=== PATIENT | male | born 1930 | race Caucasian/White ===

== ENCOUNTER 2016-12-10 21:26 | Inpatient (IN) | payer MEDICARE, BC ==
--- NOTE | ~2016-12-10 | DS ---
Discharge Summary [facility] [address] [place]. [address] NAME: LUKE MUELLER : 34 STATUS : DIS IN PAT#: [id number] AGE: 86 ADM/REG DATE : 12/11/16 MR#: [id number] REPORT SERV DATE: 12/13/16 DICTATED BY: JANETTE JOHNSON DATE: 12/12/16 REPORT STATUS : Draft TRANSCRIBED BY: MODL DATE: 12/12/16 ADMISSION DATE: 12/10/2016 DISCHARGE DATE: 12/12/2016 PRINCIPAL DIAGNOSIS: Acute exacerbation of chronic obstructive pulmonary disease with acute on chronic hypoxemic respiratory failure. SECONDARY DIAGNOSES: 1. Type 2 diabetes. 2. Hypertension. 3. Mild acute kidney injury. 4. Elevated left hemidiaphragm. HISTORY OF PRESENT ILLNESS: Please see Dr. Martinez's dictation on 12/10. HOSPITAL COURSE: Admitted with acute exacerbation of COPD with hypoxemia. The patient received bronchodilator, steroids, mucolytic therapy with significant resolution in symptoms. He was still found to have hypoxemia walking and home oxygen was set up on 12/12. With good expectoration, he was able to be released actually on 12/12 with a tapering dose of steroids, nebulized albuterol, Symbicort, Spiriva, Daliresp, potassium, Starlix, Hyzaar, Zyrtec, aspirin. He was given acetylcysteine 600 b.i.d., doxycycline 100 b.i.d., and instructed on the use of home remedies such as Vicks Vapor Rub, humidifiers, codeine cough syrup was also provided to assist with mucolysis. In addition, the patient had expressed anxiety would worsen his symptoms. Ativan was given p.r.n. to prevent hyperventilation which may worsen his symptoms. Follow up with Dr. Caren Etienne in one to two weeks regarding ongoing care. Greater than 30 minutes spent with the patient on discharge planning on discharge day. BHARTI/BRIGIDA Janette Johnson M.D. / [id number] CC: Harvinder Osullivan M.D.
--- NOTE | ~2016-12-10 | HP ---
History And Physical [address] [place]. [address] NAME: LUKE MUELLER : 34 STATUS : ADM Henrik PAT#: [id number] AGE: 86 ADM/REG DATE : 12/10/16 MR#: [id number] REPORT SERV DATE: 12/11/16 DICTATED BY: LONDON HIDALGO DATE: 12/10/16 REPORT STATUS : Draft TRANSCRIBED BY: MODL DATE: 12/10/16 DATE OF ADMISSION: 12/10/2016 CHIEF COMPLAINT: Shortness of breath. HISTORY OF PRESENT ILLNESS: This is an 86-year-old gentleman with history of COPD, hypertension, diabetes, and anxiety presenting with a shortness of breath. The patient reports that he developed shortness of breath since Monday along with cough, productive of some sputum. The patient follows with Dr. Iqbal, and he was actually seen at Dr. Iqbal's office on Monday. At the office, the patient provided sputum for culture and he was discharged home from the office with amoxicillin and some steroids. The patient was actually feeling better with it until yesterday when his breathing got acutely worse. The patient went to an urgent care, where he was apparently found to have oxygen saturations in the 60s and he was emergently referred to the ER for further evaluation and care. In the ER, the patient was found to be slightly tachycardic with heart rate 109, but rest of the vitals were stable. The patient was actually able to maintain adequate oxygen saturations on 2 L of oxygen per nasal cannula alone. Initial lab evaluation was all fairly benign. Chest x-ray revealed a potential left sided infiltrates. Internal Medicine consultation was requested for admission of the patient for further evaluation and care. REVIEW OF SYSTEMS: The patient denies any fevers or chills. Also, 14-point review of systems reviewed and negative other than mentioned above. MEDICATIONS: 1. Proventil two puffs inhaled five times daily p.r.n. 2. Albuterol 1 nebulizer inhaled daily. 3. Amoxicillin 875 mg p.o. q.12 hours x5 days. 4. Aspirin 81 mg p.o. every 48 hours. 5. Symbicort two puffs inhaled twice daily. 6. Zyrtec 10 mg p.o. daily. 7. Flonase one spray nasally daily. 8. Lantus 16 units subcu at bedtime. 9. Hyzaar 08/02 1 tab p.o. daily. 10.Starlix 120 mg p.o. three times daily. 11.Potassium gluconate 550 mg p.o. daily. 12.Prednisone 40 mg p.o. daily x5 days. 13.Daliresp 500 mcg p.o. daily. 14.Spiriva one capsule inhaled daily. ALLERGIES: NKDA. PAST MEDICAL HISTORY: 1. COPD for which, the patient follows with Dr. Iqbal. The patient is not on any home oxygen. History And Physical [address] [address] NAME: LUKE MUELLER : 34 STATUS : ADM Henrik PAT#: [id number] AGE: 86 ADM/REG DATE : 12/10/16 MR#: [id number] REPORT SERV DATE: 12/11/16 DICTATED BY: LONDON HIDALGO DATE: 12/10/16 REPORT STATUS : Draft TRANSCRIBED BY: BRIGIDA DATE: 12/10/16 2. Insulin-dependent diabetes type 2. 3. Hypertension. 4. Anxiety. 5. Peripheral artery disease with stents in both of his kidneys and aorta. 6. TIAs. PAST SURGICAL HISTORY: 1. Miscellaneous orthopaedic surgeries. 2. Collapsed lung a couple years ago for which he had some kind of surgery. FAMILY HISTORY: Negative. SOCIAL HISTORY: The patient does not smoke, drink alcohol, or use any illicit drugs. The patient lives a fairly active life and he lives at home with his . The patient's is at bedside here in the ER. PHYSICAL EXAMINATION: VITAL SIGNS: Temperature 98.6, blood pressure 160/87, pulse 109, respiratory rate is 20, and saturating 96% on 2 L of oxygen. CONSTITUTIONAL: The patient is alert and oriented x3. No focal neurologic deficits. GENERAL: The patient is awake, does not appear to be in acute distress, and he is cooperative.. NECK: No JVD. No lymphadenopathy. Normal thyroid. CHEST: No midline sternotomy scar and no tenderness to palpation. LUNGS: Actually fairly clear to auscultation bilaterally with minimal rhonchi on the left lung arceo. Otherwise, normal respiratory effort on 2 L of oxygen per nasal cannula. CARDIOVASCULAR: Slightly tachycardic, but otherwise no murmurs, rubs, or gallops, and PMI is nondisplaced. ABDOMEN: Soft, nontender, with active bowel sounds and no organomegaly. EXTREMITIES: No edema. Normal distal pulses. No calf tenderness. SKIN: Clean, dry, warm, and intact. LABORATORY DATA: Sodium is 140, potassium 3.9, chloride 102, BUN 39, creatinine 1.78, glucose 397, calcium 9.2, magnesium 1.7. White blood cell count is 10.4, hemoglobin 14.4, platelets 248. INR is 1.0, troponin is less than 0.02. BNP was 58.4. Chest x-ray showed a potential left sided pneumonia. ABG was within normal limits on 2 L of oxygen per nasal cannula. ASSESSMENT: This is an 86-year-old gentleman with history of COPD presenting with community- acquired pneumonia and acute hypoxic respiratory failure. 1. Community-acquired pneumonia with Acinetobacter baumannii and haemolyticus. 2. Acute hypoxic respiratory failure secondary to above. 3. COPD, not dependent on home oxygen at baseline. 4. Uncontrolled diabetes type 2. 5. Stable chronic kidney disease. 6. Hypertension. 7. Anxiety. History And Physical [address] [address] NAME: LUKE MUELLER : 34 STATUS : ADM Henrik PAT#: [id number] AGE: 86 ADM/REG DATE : 12/10/16 MR#: [id number] REPORT SERV DATE: 12/11/16 DICTATED BY: LONDON HIDALGO DATE: 12/10/16 REPORT STATUS : Draft TRANSCRIBED BY: MODZakia DATE: 12/10/16 8. Peripheral artery disease. PLAN: My plan is to admit the patient for observation overnight. The patient will be monitored under telemetry monitoring. The patient will be treated with oxygen support and bronchodilator therapy. Based on sensitivities, I will start the patient on IV Levaquin. The patient will also be continued on p.o. steroids. I will still complete infectious workup including cultures, procalcitonin level, and following up of labs. For diabetes, the patient will be given additional sliding-scale NovoLog and I will check his hemoglobin A1c. Otherwise, for the rest of stable past medical conditions including chronic kidney disease, hypertension, anxiety peripheral artery disease et al, I will continue home medications. Standard DVT prophylaxis. The patient is full code at this time. YSC/MODL London Hidalgo MD / [id number] CC: Harvinder Osullivan M.D. Carlos Baleeiro, M.D.
[2016-12-10 18:06] LABS: BASOPHILS 0 %; EOSINOPHILS 0 %; HEMATOCRIT 43.6 % (40.0-51.0); HEMOGLOBIN 14.4 g/dL (13.6-17.8); IMMATURE GRANULOCYTES 0.2 %; IMMATURE GRANULOCYTES ABSOLUTE 0.02 10/3/uL (0.0-0.11); LYMPHOCYTES ABSOLUTE 0.42 10/3/uL (0.67-4.30); MEAN CORPUSCULAR HEMOGLOB 30.8 pg (26.0-34.0); MEAN CORPUSCULAR VOLUME 93.4 fL (80-100); MEAN PLATELET VOLUME 9.5 fL (9.2-13.0); MONOCYTES 1.2 %; MONOCYTES ABSOLUTE 0.13 10/3/uL (0.21-1.20); NEUTROPHILS 94.6 %; NEUTROPHILS ABSOLUTE 9.87 10/3/uL (2.02-8.40); PLATELET COUNT 248 10/3/uL (150-400); RBC DISTRIBUTION WIDTH 13.8 % (12.0-16.0); RED CELL COUNT 4.67 10/6/uL (4.7-6.1); WHITE BLOOD CELLS 10.4 10/3/uL (4.5-10.5)
[2016-12-10 18:07] LABS: MANUAL DIFF NO %
[2016-12-10 18:13] LABS: PROTIME (NOT ORD) 12.9 SEC (12.0-14.5)
[2016-12-10 18:14] LABS: PARTIAL THROMBO TIME 28.2 SEC (22.5-37.2)
[2016-12-10 18:25] LABS: BUN (BLOOD UREA NITROGEN) 39 MG/DL (6-23); CALCIUM, SERUM 9.2 MG/DL (8.5-10.4); CHEST PAIN PROFILE TAT 0 Hrs 25 Mins; CHLORIDE, SERUM 102 MMOL/L (96-112); CO2 (CARBON DIOXIDE) 26 MMOL/L (24-34); CREATININE 1.78 MG/DL (0.70-1.30); GFR AFRICAN AMERICAN 40 ML/MIN (>=60); GFR NON AFRICAN AMERICAN 34 ML/MIN (>=60); GLUCOSE, SERUM 397 MG/DL (60-99); POTASSIUM, SERUM 3.9 MMOL/L (3.5-5.3); SODIUM, SERUM 140 MMOL/L (135-148); TROPONIN I <0.02 NG/ML (<0.05)
[2016-12-10 20:52] LABS: BE (BASE EXCESS) 2.2 MEQ/L (0 +/- 2.5); CARBOXYHEMOGLOBIN 1.5 % (0-3); DEVICE NC; HCO3 (ACTUAL BICARBONATE) 26.8 MEQ/L (23-27); HEMOBLOGIN CONTENT 14.9 G/DL (14-18); INSTRUMENT SERIAL # 8087; METHEMOGLOBIN 0.3 % (0-3); O2 CONTENT 20.1 VOL% (18-24); OPERATOR ID 17537; PCO2 (CO2 TENSION) 42 MMHG (35-45); PO2 (O2 TENSION) 90 MMHG (79-93); SAMPLE Arterial; pH 7.43 (7.37-7.43)
[~2016-12-10 21:26] MED LIST: ALBUTEROL0.083 % INH; ALBUTEROL5 INH; AMOXIL875 MG PO; ASAB PO; CELEXA20 PO; CENTRUM PO; DALIRESP500 MCG PO; FLONASE NAS; HYZAAR 100/25 T1 TAB PO; HYZAAR 50/12.51 TAB PO; INSNOVR SC; L20 PO; L40 PO; LANTUS SC; LANTUSCART SC; LEVAQUIN750 MG PO; LOP25 PO; MONODOX100 MG PO; MUCINEX600 MG PO; P10 PO; P20 PO; POT GLUCONAT2.5 MEQ PO; POT GLUCONAT550 M1 PO; PROAIR HFA INH; PROVHFA INH; SINGULAIR1 PO; SPIRIVA INH; STARLIX120 PO; STIOLTO RESPIMAT4 GM INH; SYMBICORT 160/41 INH INH; ZYRTEC ALLGY10 MG PO
[2016-12-11 01:42] LABS: PROCALCITONIN 0.12 ng/mL (<0.5)
[2016-12-11 06:21] LABS: BASOPHILS 0 %; EOSINOPHILS 0 %; HEMATOCRIT 40.5 % (40.0-51.0); HEMOGLOBIN 13.5 g/dL (13.6-17.8); IMMATURE GRANULOCYTES 0.2 %; IMMATURE GRANULOCYTES ABSOLUTE 0.02 10/3/uL (0.0-0.11); LYMPHOCYTES 8.3 %; LYMPHOCYTES ABSOLUTE 0.67 10/3/uL (0.67-4.30); MEAN CORPUS HGB CONC 33.3 g/dL (32.0-36.0); MEAN CORPUSCULAR HEMOGLOB 31.3 pg (26.0-34.0); MEAN CORPUSCULAR VOLUME 93.8 fL (80-100); MEAN PLATELET VOLUME 9.4 fL (9.2-13.0); MONOCYTES 2.1 %; MONOCYTES ABSOLUTE 0.17 10/3/uL (0.21-1.20); NEUTROPHILS 89.4 %; NEUTROPHILS ABSOLUTE 7.23 10/3/uL (2.02-8.40); PLATELET COUNT 236 10/3/uL (150-400); RBC DISTRIBUTION WIDTH 13.4 % (12.0-16.0); RED CELL COUNT 4.32 10/6/uL (4.7-6.1); WHITE BLOOD CELLS 8.1 10/3/uL (4.5-10.5)
[2016-12-11 06:22] LABS: MANUAL DIFF NO %
[2016-12-11 06:38] LABS: BUN (BLOOD UREA NITROGEN) 32 MG/DL (6-23); CALCIUM, SERUM 8.8 MG/DL (8.5-10.4); CHLORIDE, SERUM 102 MMOL/L (96-112); CO2 (CARBON DIOXIDE) 29 MMOL/L (24-34); CREATININE 1.43 MG/DL (0.70-1.30); GFR AFRICAN AMERICAN 52 ML/MIN (>=60); GFR NON AFRICAN AMERICAN 45 ML/MIN (>=60); GLUCOSE, SERUM 217 MG/DL (60-99); POTASSIUM, SERUM 3.9 MMOL/L (3.5-5.3); SODIUM, SERUM 142 MMOL/L (135-148)
[2016-12-12] MEDS ORDERED: MAGOX4 PO (12:43)
[2016-12-12] MEDS ORDERED: P20 PO (12:43)
[2016-12-12] MEDS ORDERED: TESS PO (12:43)
[2016-12-12] MEDS ORDERED: NORV5 PO (12:43)
== END 2016-12-12 17:33 | disposition home or self-care (01) | DRG 189 ==
LOC: ER 21:26 → 4SO 23:33
PROVIDERS: Emergency Medicine; Internal Medicine
DX: J96.21 Acute and chronic respiratory failure with hypoxia (principal); J16.8 Pneumonia due to other specified infectious organisms; N17.9 Acute kidney failure, unspecified; J44.0 Chronic obstructive pulmonary disease with (acute) lower respiratory infection; J44.1 Chronic obstructive pulmonary disease with (acute) exacerbation; E11.65 Type 2 diabetes mellitus with hyperglycemia; N18.9 Chronic kidney disease, unspecified; F41.9 Anxiety disorder, unspecified; I73.89 Other specified peripheral vascular diseases; Z95.820 Peripheral vascular angioplasty status with implants and grafts; Z99.81 Dependence on supplemental oxygen; Z79.82 Long term (current) use of aspirin; Z79.51 Long term (current) use of inhaled steroids; Z79.52 Long term (current) use of systemic steroids; I16.0 Hypertensive urgency; I12.9 Hypertensive chronic kidney disease with stage 1 through stage 4 chronic kidney disease, or unspecified chronic kidney disease
CPT/HCPCS: 36600; 71010; 80048; 82805; 82962; 83735; 83880; 84145; 84484; 85025; 85610; 85730; 87040; 93005; 94640; 96374; 96375; 99285; A9270-GY; J1956; J2930